=== PATIENT | male | born 2000 | race Caucasian/White ===

== ENCOUNTER 2022-07-29 12:45 | Emergency (ER) | payer OTHER, SELFPAY ==
[2022-07-29 12:46] VITALS: BP 130/63; PULSE 65; RESP 16; TEMP 36.6; O2SAT 98; BMI 31.8
--- NOTE | 2022-07-29 13:17 | EX.ED.UPPERE ---
HPI History of Present Illness Chief Complaint: Upper Extremity Injury Narrative Narrative: 22-year-old male presenting with left pinky pain. He states he was kicking a soccer ball with a friend. He states he kicked the ball very hard and his friend chased after it. He followed his friend towards the ball. His friend felt that he was not right behind him and turned around and automatically kick the ball as hard as he could. This hit the patient in his left pinky. Patient states it hyperextended his pinky. Patient complains of pain and bruising in the left pinky. He denies numbness or tingling. No lacerations or abrasions. PFSH PFSH Medical History no medical history Allergy/AdvReac Type Severity Reaction Status Date / Time No Known Allergies Allergy Verified 07/29/22 12:48 Surgical History no surgical history Social History Smoking Status: Current every day smoker tobacco type: cigarettes ROS ROS ED Constitutional Constitutional ED: Denies chills, fever(s) or sweats Eyes Eyes: Denies blurry vision or change in vision ENT ENT ED: Denies ear pain or sore throat Cardiovascular Cardiovascular: Denies chest pain, palpitations or racing heartbeat Respiratory/Chest Respiratory/Chest: Denies cough, dyspnea or sputum Gastrointestinal Gastrointestinal: Denies abdominal pain, constipation, diarrhea, nausea or vomiting Genitourinary Genitourinary ED: Denies dysuria, hematuria or urinary frequency Musculoskeletal Musculoskeletal: Reports other Details: Left fifth digit pain Integumentary Denies abscess, Abrasions or rash Neurologic Neurologic: Denies headache(s), paresthesias or weakness Psychiatric Psychiatric: Denies anxiety, depression, suicidal ideation or suicidal thoughts Endocrine Endocrinology: Denies polydipsia or polyuria EXAM Physical Exam Const Vital Signs: 07/29/22 12:46 Temperature 97.8 F Temperature Source Temporal Pulse Rate 65 Respiratory Rate 16 Blood Pressure 130/63 H Blood Pressure Mean 85 Pulse Ox 98 Oxygen Delivery Method Room Air Positive well nourished General Appearance ED: NAD HEENT Reports moist mucous membranes Resp normal respiratory effort Cardio regular rate and regular rhythm Extremity Extremity Narrative: Bruising and swelling of left fifth digit of hand. Normal range of motion. Brisk cap refill. Neurovascular intact. Bruising is mostly on the volar surface. No obvious deformity. Neuro oriented x3 and CN's II-XII intact bilaterally Sensorium / Orientation: alert Psych mental status grossly normal MDM MDM MDM Narrative Medical decision making narrative: Patient presenting with left pinky pain. Its mostly in the PIP. He still maintains full range of motion. There are some bruising on the volar surface and swelling. Patient declines analgesia. X-ray of the left hand on my interpretation shows a nondisplaced fracture of the middle phalanx. Radiology interprets this and agrees. Patient placed in AlumaFoam splint. He is given follow-up with orthopedics. He states is not very painful and he can take NSAIDs. Ice and elevation. Impression: 1. Left fifth digit fracture Discharge Plan Triage Chief Complaint: Upper Extremity Injury ED Provider: Marino Rodriguez Dx/Rx/DC Orders Instructions: ED Fracture, Finger, Closed Primary Care Provider: Trish Olson,Out of Referrals: Dean Fry MD [Med Staff - Active Staff] - 3-5 Days Trish Olson,Out of [Primary Care Provider] - Disposition Disposition: Home, Self Care
--- NOTE | 2022-07-29 13:25 | RAD_ITS ---
STUDY: X-RAY - LEFT HAND REASON FOR EXAM: Male, 22 years old. pain 5th digit TECHNIQUE: 3 view(s) of the hand. COMPARISON: None. FINDINGS: Normal radiocarpal articulation. Normal distal radioulnar joint. Normal visualized carpal bones. Normal carpal articulations Normal carpometacarpal articulation of the thumb. Normal second through fifth carpometacarpal joints. Normal metacarpi. Normal metacarpophalangeal joint of the thumb. Normal interphalangeal joint of the thumb. Normal proximal and distal phalanges of the thumb. Normal metacarpophalangeal joints of the second through fifth fingers. Normal proximal and distal interphalangeal joints of the second through fifth fingers. Radiolucency through the base of the fifth middle phalanx worrisome for nondisplaced fracture. The soft tissue structures are unremarkable. RAD/Hand Min 3 Views IMPRESSION: Suspect nondisplaced fracture of the base of the fifth middle phalanx. Electronically Signed: Jay Merrill MD at 13:43 EDT ,
== END 2022-07-29 14:12 | disposition home or self-care (01) ==
PROVIDERS: Emergency Provider Student in an Organized Health Care Education/Training Program; PCP Pediatrics; Visit Provider Student in an Organized Health Care Education/Training Program
DX: S62.657A Nondisplaced fracture of middle phalanx of left little finger, initial encounter for closed fracture (principal); W21.02XA Struck by soccer ball, initial encounter; Y93.66 Activity, soccer; F17.210 Nicotine dependence, cigarettes, uncomplicated
CPT/HCPCS: 73130; 99283

== ENCOUNTER 2022-08-29 08:23 | Emergency (ER) | payer OTHER, SELFPAY ==
[2022-08-29 08:24] VITALS: BP 141/86; PULSE 67; RESP 16; TEMP 36.6; O2SAT 100; BMI 33.9
--- NOTE | 2022-08-29 08:39 | RAD_ITS ---
STUDY: X-RAY - RIGHT FOOT CLINICAL: Male, 22 years old. FB. Patient stepped on a screw. TECHNIQUE: 3 view(s) of the foot. COMPARISON: None. FINDINGS: Normal talus, calcaneus, and tarsal bones. Normal visualized subtalar, talonavicular, calcaneocuboid, tarsal and tarsometatarsal articulations. Normal metatarsi. Normal metatarsophalangeal joint of the great toe. Normal tibial and fibular sesamoid bones. Normal interphalangeal joint of the great toe. Normal phalanges of the great toe. Normal second through fifth metatarsophalangeal joints. Normal interphalangeal joints and phalanges of the lesser toes. There is a 3 cm metallic screw in the plantar soft tissues. No bony involvement is seen. RAD/Foot min 3 Views IMPRESSION: 3 cm metallic screw is seen in the plantar soft tissues. No bony abnormality is seen. Electronically Signed: Dung Thomas MD at 8:56 EDT ,
--- NOTE | 2022-08-29 09:00 | ED.VIS.LOWEX ---
HPI History of Present Illness HPI Narrative: Patient presents with a foreign body to his right foot that occurred today. Patient states he got out of bed and stepped on a screw for his guitar. Patient states he was in his bare feet at a time. Patient states pain is aching and stabbing. Patient states pain is worse with movement. Patient denies any paresthesias or weakness. Patient states his last tetanus was last week. Patient states he did get nauseated at the time of the injury but states this has resolved. Patient denies any other injuries. Chief Complaint: Laceration Informant: patient Occured/Mechanism Mechanism/Context: Yes puncture wound Onset/Context/Timing Onset: Today Context: Sudden Onset Timing: Continuous Quality of Pain: Aching and Stabbing Location: Right foot Worsened by: Movement Relieved by: Nothing Associated Symptoms Associated Symptoms: Negative for Parasthesia, Weakness or Loss of Funtion Narrative Tetanus Immunization: <5 years [facility] Medical History (Updated 08/29/22 @ 09:[address] Wu Logan DO) ADHD Depression Medical History no medical history Home Medications cephalexin 500 mg capsule 500 mg PO Q6 #40 CAPSULES 08/29/22 [Rx Last Taken Unknown] Allergy/AdvReac Type Severity Reaction Status Date / Time No Known Allergies Allergy Verified 08/29/22 08:24 Surgical History no surgical history no surgical history Social History Smoking Status: Current every day smoker tobacco type: cigarettes ROS ROS ED Constitutional Constitutional ED: Denies chills or fever(s) Eyes Eyes: Denies blurry vision or change in vision ENT ENT ED: Denies rhinorrhea or sore throat Cardiovascular Cardiovascular: Denies chest pain or palpitations Respiratory/Chest Respiratory/Chest: Denies cough or dyspnea Gastrointestinal Gastrointestinal: Reports nausea; Denies vomiting Genitourinary Genitourinary ED: Denies dysuria or hematuria Musculoskeletal Musculoskeletal: Denies back pain or neck pain Integumentary Denies abscess or rash Neurologic Neurologic: Denies headache(s) or weakness Allergic/Immunologic Allergic/Immunologic ED: Denies mouth swelling or urticaria EXAM Physical Exam Const Vital Signs: 08/29/22 08:24 Temperature 97.8 F Temperature Source Temporal Pulse Rate 67 Respiratory Rate 16 Blood Pressure 141/86 H Blood Pressure Mean 104 Pulse Ox 100 Oxygen Delivery Method Room Air Positive well nourished and well developed General Appearance ED: well developed and NAD HEENT Reports moist mucous membranes Neck full ROM and supple Extremity Extremity Narrative: There is a foreign body noted in the plantar aspect of the right foot. There is minimal bleeding around the foreign body puncture site. There is no erythema or warmth. There is tenderness to palpation over this area. Sensation was intact to light touch in all digits. Capillary refill was less than 2 seconds in all digits. Pedal pulses are equal bilaterally. Neuro oriented x3, CN's II-XII intact bilaterally, moves all extremities and no sensory deficits noted Sensorium / Orientation: alert Motor Exam: strength 5/5 throughout Psych mental status grossly normal Skin Skin Narrative: There is a puncture wound noted over the plantar aspect of the right foot MDM MDM MDM Narrative Medical decision making narrative: Differential diagnosis includes foreign body in the soft tissues of the right foot, and fracture. X-rays of the right foot will be obtained to assess for fracture. Radiography Diagnostic Testing: Clinical Impression(s) from Imaging Studies Foot X-Ray 08/29/22 08:39 IMPRESSION: 3 cm metallic screw is seen in the plantar soft tissues. No bony abnormality is seen. Electronically Signed: Dung Thomas MD at 8:56 EDT , X-rays of the right foot were obtained. There are 3 views. On my independent interpretation, there is a foreign body noted in the soft tissues of the right foot on the plantar surface. There is no fracture or bony involvement. Radiologist also interpreted the x-rays and agrees. Treatment and Re-Evaluation Narrative: The wound was cleaned. The foreign body was removed without difficulty. Patient tolerated the procedure well. Bacitracin dressing was applied. Patient was given a dose of Keflex here. Patient was given a prescription for Keflex. Patient was instructed to keep the wound clean and dry. Patient was instructed to follow-up with his primary care physician in 5 to 7 days. Patient understood and was agreeable with the plan. All questions were answered. Discharge Plan Triage Chief Complaint: Laceration ED Provider: Wu Logan Dx/Rx/DC Orders Clinical Impression: Acute foreign body of right foot Instructions: ED Foreign Body, Soft Tissue (Removed) Prescriptions: New cephalexin [cephalexin] 500 mg capsule 500 mg PO Q6 Qty: 40 0RF Primary Care Provider: Tom Santacruz Referrals: Tom Santacruz MD [Primary Care Provider] - 5-7 Days Disposition Disposition: Home, Self Care
[2022-08-29] MEDS: Naproxen 250 MG Tablet 500 MG PO (09:23)
[2022-08-29] MEDS: Cephalexin 500 MG Capsule PO (09:23)
== END 2022-08-29 09:29 | disposition home or self-care (01) ==
PROVIDERS: Emergency Provider Emergency Medicine; PCP Pediatrics; Visit Provider Emergency Medicine
DX: S90.851A Superficial foreign body, right foot, initial encounter (principal); F17.210 Nicotine dependence, cigarettes, uncomplicated; W22.8XXA Striking against or struck by other objects, initial encounter
CPT/HCPCS: 73630; 99283

== ENCOUNTER 2023-05-27 20:00 | Emergency (ER) | payer OTHER, SELFPAY ==
[2023-05-27 20:00] VITALS: BP 149/110; PULSE 75; RESP 16; TEMP 36.6; O2SAT 99; BMI 30.4
--- NOTE | 2023-05-27 20:12 | EDS_ITS ---
HPI <NGUYỄN Galvan - Last Filed: 05/27/23 21:01> History of Present Illness Chief Complaint: Other, Pain/Inj Narrative Narrative: 23-year-old male states a week and a half ago he developed a sore throat. It started after vaping and he thought it inflamed the area so he stopped vaping. However sore throat has been persistent and over the last 2 days he developed pain and swelling on the right side of his throat/neck. Over the last couple hours his voice became muffled. He has pain with p.o. intake but was able to have pudding today. No drooling or stridor. No fever or chills. PFSH <NGUYỄN Galvan Last Filed: 05/27/23 21:01> [facility] Medical History (Updated 05/27/23 @ 21:[address] Jim Cash MD) ADHD Depression Home Medications cephalexin 500 mg capsule 500 mg PO Q6 #40 CAPSULES 08/29/22 [Rx Last Taken Unknown] amoxicillin 875 mg-potassium clavulanate 125 mg tablet 1 tab PO BID 10 days #20 tabs 05/27/23 [Rx Last Taken Unknown] Allergy/AdvReac Type Severity Reaction Status Date / Time No Known Allergies Allergy Verified 05/27/23 20:02 Social History Smoking Status: Current every day smoker tobacco type: cigarettes ROS <NGUYỄN Galvan Last Filed: 05/27/23 21:01> ROS ED ROS Narrative Constitutional: Negative for fever, chills, malaise. ENT: Positive for sore throat. CVS: Negative for chest pain. Respiratory: Negative for shortness of breath, cough. Neuro: Negative for headache. EXAM <NGUYỄN Galvan Last Filed: 05/27/23 21:01> Physical Exam Narrative Exam Narrative: CONST: Patient sitting in no acute distress. EYES: Normal inspection. ENT: Moist mucous membranes, pharyngeal erythema and enlarged right tonsil, midline uvula, no trismus or tongue elevation, muffled hot potato voice, no drooling or stridor. Normal dentition, no periapical abscess, sublingual space is soft. NECK: Normal inspection. Tender over the right anterior cervical lymph nodes, trachea midline. RESP: No respiratory distress, CTAB. CVS: Regular rate and rhythm, no murmur, no gallop. SKIN: Color normal, no rash, warm, dry, intact. EXTREMITIES: Normal appearance, no pedal edema. NEURO: Oriented x4. PSYCH: Normal affect. Const Vital Signs: 05/27/23 20:00 Temperature 97.8 F Temperature Source Temporal Pulse Rate 75 Respiratory Rate 16 Blood Pressure 149/110 H Blood Pressure Mean 123 Pulse Ox 99 Oxygen Delivery Method Room Air <Dr. Jim Cash MD - Last Filed: 05/27/23 21:28> Physical Exam Const Vital Signs: 05/27/23 20:00 Temperature 97.8 F Temperature Source Temporal Pulse Rate 75 Respiratory Rate 16 Blood Pressure 149/110 H Blood Pressure Mean 123 Pulse Ox 99 Oxygen Delivery Method Room Air MDM <NGUYỄN Galvan - Last Filed: 05/27/23 21:01> [facility] Narrative Medical decision making narrative: Patient has had 1.5 weeks of sore throat which worsened on the right side over the last couple days. He appears well and nontoxic. He is mildly hypertensive with otherwise normal vital signs. He has a hot potato voice but no trismus or tongue elevation. Right tonsil is enlarged and erythematous with no exudate. Uvula is midline. There is no drooling or stridor. He has normal dentition and no signs of Cliff's angina. Differential includes viral pharyngitis, strep pharyngitis, and peritonsillar abscess. Rapid strep is negative. Since he has evidence of right tonsillar cellulitis he will be treated with Augmentin x 10 days. Given dose of p.o. Decadron here. Return precautions discussed and he was discharged in stable condition. <Dr. Jim Cash MD - Last Filed: 05/27/23 21:28> [facility] Narrative Medical decision making narrative: Patient has had 1.5 weeks of sore throat which worsened on the right side over the last couple days. He appears well and nontoxic. He is mildly hypertensive with otherwise normal vital signs. He has a hot potato voice but no trismus or tongue elevation. Right tonsil is enlarged and erythematous with no exudate. Uvula is midline. There is no drooling or stridor. He has normal dentition and no signs of Cliff's angina. Differential includes viral pharyngitis, strep pharyngitis, and peritonsillar abscess. Rapid strep is negative. Since he has evidence of right tonsillar cellulitis he will be treated with Augmentin x 10 days. Given dose of p.o. Decadron here. Return precautions discussed and he was discharged in stable condition. I have personally performed a face to face assessment of the patient and have reviewed the ANNAMARIA Note. I performed a substantive portion of the visit including all aspects of the following. My jin findings include: History is remarkable for sore throat for greater than 1 week. Patient has change in voice. He denies drooling. States it hurts to swallow. He is able to open and close his mouth completely. He states he had a fever at the onset of his illness. He denies rhinorrhea, congestion postnasal drainage. He denies cough or sputum production. He denies rash. He denies myalgias or arthralgias. Exam is remarkable for an elevated blood pressure. He has a hot potato voice. There is evidence of a peritonsillar cellulitis on the right. There is no fluctuance. Uvula is midline. There is no trismus. Trachea is midline. There is no inspiratory expiratory stridor. Heart is regular. Rate is normal. There is no murmur, gallop or rub. There are no dermatologic lesions noted. Medical Decision Making will obtain rapid strep. Patient has peritonsillar cellulitis. There is no evidence of peritonsillar abscess. Patient was treated with Decadron and Augmentin. Other additions or changes: There is no history rheumatic fever, heart murmur or SBE. Patient denies drug use and on no immunosuppressive agents. Discharge Plan Triage Chief Complaint: Other, Pain/Inj ED Midlevel Provider: Nancy Joseph ED Provider: Jim Cash Dx/Rx/DC Orders Clinical Impression: Peritonsillar cellulitis, Elevated BP without diagnosis of hypertension Instructions: Tonsillitis in Adults Prescriptions: New amoxicillin-pot clavulanate 875-125 mg tablet 1 tab PO BID 10 Days Qty: 20 0RF No Action cephalexin [cephalexin] 500 mg capsule 500 mg PO Q6 Qty: 40 0RF Primary Care Provider: Care Physician,No Primary Referrals: Tom Santacruz MD [Non-Staff] - Activity Restrictions/Additional Instructions: Take Tylenol or ibuprofen for pain and complete the antibiotic Disposition Disposition: Home, Self Care Discharge Date/Time: 05/27/23 21:17
[2023-05-27] MEDS: dexAMETHasone 10 MG/ML Vial PO.IVFORM (20:15)
[2023-05-27] MEDS: Ibuprofen 600 MG Tablet PO (21:10)
[2023-05-27] MEDS: Amox/Clavulanate 875 MG Tablet PO (21:11)
== END 2023-05-27 21:17 | disposition home or self-care (01) ==
PROVIDERS: Emergency Provider Emergency Medicine; Visit Provider Emergency Medicine
DX: J36 Peritonsillar abscess (principal); R03.0 Elevated blood-pressure reading, without diagnosis of hypertension; F17.210 Nicotine dependence, cigarettes, uncomplicated
CPT/HCPCS: 87651; 99283